=== PATIENT | female | born 1960 | race African-American/Black ===

== ENCOUNTER 2019-01-10 12:40 | Inpatient (IN) | payer MEDICAID, OTHER ==
[~2019-01-10] VITALS: Ht 167.6 cm; Wt 90.7 kg
[2019-01-10] MEDS ORDERED: ONDANSETRON HCL 4MG/2ML INJ IV STA (12:52)
[2019-01-10] MEDS ORDERED: MORPHINE SULFATE 4 MG/ML CPJ (NOT FOR IM USE) IV STA (12:52)
[2019-01-10] MEDS ORDERED: ASPIRIN 81MG TABLET PO ONE (13:00)
[2019-01-10] MEDS ORDERED: NITROGLYCERIN OINT 1GM/INCH UDPKT TD ONE (13:00)
[2019-01-10 13:23] LABS: BASOPHILS % 0.9 % (0.0-2.0); EOSINOPHILS % 1.7 % (0.0-5.0); HEMATOCRIT. 39.3 % (36.0-48.0); LYMPHOCYTES % 21.9 % (20.0-50.0); MEAN CORPUSCULAR HEMOGLOBIN 26.9 pg (28.0-32.0); MEAN CORPUSCULAR VOLUME 81.1 fL (81.0-99.0); MEAN PLATELET VOLUME 9.1 fl (7.4-10.4); MONOCYTES % 9.8 % (2.0-8.0); NEUTROPHILS % 65.7 % (40.0-76.0); PLATELET 289 x1000/uL (130-400); RED BLOOD CELL COUNT 4.85 mill/uL (4.2-5.4)
[2019-01-10 13:29] LABS: CHLORIDE 104 mEq/L (98-107)
[2019-01-10 13:33] LABS: ETHANOL BLOOD < 10 mg/dL; PARTIAL THROMBOPLASTIN TIME 29.7 sec (23.4-31.0)
[2019-01-10] MEDS ORDERED: IPRATROPIUM BROMIDE (0.02%) 0.5MG/2.5ML NEB HHN STA (13:41)
[2019-01-10] MEDS ORDERED: ALBUTEROL (0.083%) 2.5MG/3ML NEB HHN STA (13:41)
[2019-01-10] MEDS ORDERED: POTASSIUM CHLORIDE 20MEQ TABLET SR PO ONE (14:15)
[2019-01-10] MEDS ORDERED: LEVOFLOXACIN 500MG PREMIX 100 ML IV ONE (14:45)
[2019-01-10] MEDS ORDERED: CLONIDINE 0.1MG TABLET PO SCH (17:00)
[2019-01-10 18:20] VITALS: BP 149/87
[2019-01-10] MEDS ORDERED: MORPHINE SULFATE 2 MG/ML CPJ (NOT FOR IM USE) IV ONE (19:00)
[2019-01-10] MEDS ORDERED: IPRATROPIUM/ALBUTEROL 0.5-3(2.5)MG/3ML NEB HHN PRN (19:00)
[2019-01-10 20:00] VITALS: BP 142/81
[2019-01-10] MEDS: MORPHINE SULFATE 2 MG/ML CPJ (NOT FOR IM USE) IV PRN (21:47)
[2019-01-10] MEDS: NITROGLYCERIN OINT 1GM/INCH UDPKT TD SCH (21:48)
[2019-01-10] MEDS: METOPROLOL TARTRATE 25MG TABLET PO SCH (21:48)
[2019-01-10] MEDS: AMLODIPINE 5MG TABLET PO SCH (21:48)
[2019-01-10] MEDS ORDERED: LEVOFLOXACIN 500MG PREMIX 100 ML IV SCH (22:00)
[2019-01-11] VITALS: BP 128/61
[2019-01-11 04:00] VITALS: BP 137/62
[2019-01-11] MEDS: NITROGLYCERIN OINT 1GM/INCH UDPKT TD SCH (06:04)
[2019-01-11 06:05] LABS: BASOPHILS % 0.5 % (0.0-2.0); EOSINOPHILS % 1.7 % (0.0-5.0); HEMATOCRIT. 36.5 % (36.0-48.0); HEMOGLOBIN. 11.8 g/dL (12.0-16.0); LYMPHOCYTES % 22.1 % (20.0-50.0); MEAN CORPUSCULAR HEMOGLOBIN 26.3 pg (28.0-32.0); MEAN CORPUSCULAR VOLUME 80.9 fL (81.0-99.0); MEAN PLATELET VOLUME 8.9 fl (7.4-10.4); MONOCYTES % 12.6 % (2.0-8.0); NEUTROPHILS % 63.1 % (40.0-76.0); PLATELET 297 x1000/uL (130-400); RED CELL DISTRIBUTION WIDTH 15.2 % (11.6-14.6)
[2019-01-11] MEDS: MORPHINE SULFATE 2 MG/ML CPJ (NOT FOR IM USE) IV PRN ×3 (06:27→21:14)
[2019-01-11 06:44] LABS: CHLORIDE 103 mEq/L (98-107)
[2019-01-11 06:56] LABS: LDL CHOLESTEROL 171 mg/dL (5-100)
[2019-01-11 06:58] LABS: HDL CHOLESTEROL 39 mg/dL (40-59)
[2019-01-11 08:00] VITALS: BP 131/63
[2019-01-11] MEDS ORDERED: POTASSIUM CHLORIDE 20MEQ TABLET SR PO SCH (08:15)
[2019-01-11] MEDS ORDERED: ASPIRIN 81MG EC TABLET PO ONE (09:00)
[2019-01-11] MEDS: ASPIRIN 81MG EC TABLET PO SCH (09:39)
[2019-01-11] MEDS: AMLODIPINE 5MG TABLET PO SCH ×2 (09:39→21:13)
[2019-01-11] MEDS: METOPROLOL TARTRATE 25MG TABLET PO SCH ×2 (09:39→21:13)
[2019-01-11 12:00] VITALS: BP 137/82
[2019-01-11] MEDS ORDERED: POTASSIUM CHLORIDE 20MEQ TABLET SR PO ONE (12:45)
[2019-01-11] MEDS: NICOTINE 21MG PATCH TD SCH (13:10)
[2019-01-11 19:08] LABS: *AMPHETAMINES SCREEN URINE NEGATIVE (NEGATIVE); *BARBITURATES SCREEN URINE NEGATIVE (NEGATIVE)
[2019-01-11 19:09] LABS: *BENZODIAZEPINES SCREEN URINE NEGATIVE (NEGATIVE); *COCAINE SCREEN URINE PRESUMTIVE POSITIVE (NEGATIVE); CANNABINOID URINE SCREEN NEGATIVE (NEGATIVE); METHADONE URINE SCREEN NEGATIVE (NEGATIVE); OPIATES URINE SCREEN PRESUMTIVE POSITIVE (NEGATIVE); PHENCYCLIDINE URINE SCREEN NEGATIVE (NEGATIVE)
[2019-01-11 20:00] VITALS: BP 160/82
[2019-01-11] MEDS ORDERED: LEVOFLOXACIN 750MG PREMIX 150 ML IV SCH (21:00)
[2019-01-11] MEDS: ATORVASTATIN CALCIUM 40MG TABLET PO SCH (21:29)
[2019-01-12] VITALS: BP 141/67
[2019-01-12] MEDS: MORPHINE SULFATE 2 MG/ML CPJ (NOT FOR IM USE) IV PRN ×2 (01:37→06:00)
[2019-01-12] MEDS ORDERED: ACETAMINOPHEN 325MG TABLET PO PRN (02:00)
[2019-01-12 04:00] VITALS: BP 147/87
[2019-01-12 07:10] LABS: CHLORIDE 102 mEq/L (98-107)
[2019-01-12 07:22] LABS: BASOPHILS % 0.6 % (0.0-2.0); EOSINOPHILS % 2.1 % (0.0-5.0); HEMATOCRIT. 35.1 % (36.0-48.0); HEMOGLOBIN. 11.3 g/dL (12.0-16.0); LYMPHOCYTES % 23.6 % (20.0-50.0); MEAN CORPUSCULAR HEMOGLOBIN 26.3 pg (28.0-32.0); MEAN CORPUSCULAR VOLUME 81.7 fL (81.0-99.0); MONOCYTES % 11.3 % (2.0-8.0); NEUTROPHILS % 62.4 % (40.0-76.0); PLATELET 291 x1000/uL (130-400); RED BLOOD CELL COUNT 4.29 mill/uL (4.2-5.4)
[2019-01-12 08:00] VITALS: BP 143/80
[2019-01-12] MEDS: METOPROLOL TARTRATE 25MG TABLET PO SCH ×2 (08:26→21:06)
[2019-01-12] MEDS: AMLODIPINE 5MG TABLET PO SCH ×2 (08:26→21:06)
[2019-01-12] MEDS: ASPIRIN 81MG EC TABLET PO SCH (08:26)
[2019-01-12] MEDS: NICOTINE 21MG PATCH TD SCH (08:26)
[2019-01-12] MEDS ORDERED: DIPHENHYDRAMINE 50MG/ML VIAL IV PRN (11:30)
[2019-01-12] MEDS: METHYLPREDNISOLONE SOD SUCC 40 MG/ML VIAL IV SCH ×2 (11:59→22:18)
[2019-01-12 12:00] VITALS: BP 137/75
[2019-01-12] MEDS ORDERED: POTASSIUM CHLORIDE 20MEQ TABLET SR PO NR (13:30)
[2019-01-12 16:00] VITALS: BP 139/89
[2019-01-12] MEDS: CEFTRIAXONE 1 G PREMIX 50 ML IV SCH (17:57)
[2019-01-12] MEDS: AZITHROMYCIN 500 MG in DEXT 5% WATER 250 ML IV SCH (18:28)
[2019-01-12] MEDS: IPRATROPIUM/ALBUTEROL 0.5-3(2.5)MG/3ML NEB HHN SCH ×2 (19:44→23:39)
[2019-01-12] MEDS: ACETYLCYSTEINE 100MG/ML 10% VIAL 4ML INH SCH (19:44)
[2019-01-12 20:00] VITALS: BP 167/84
[2019-01-12] MEDS: ATORVASTATIN CALCIUM 40MG TABLET PO SCH (21:06)
[2019-01-12] MEDS: FAMOTIDINE 20MG/2ML VIAL IV SCH (22:19)
[2019-01-13 00:56] VITALS: BP 160/84
[2019-01-13] MEDS: CLONIDINE 0.1MG TABLET PO SCH ×3 (01:17→21:47)
[2019-01-13] MEDS: ACETYLCYSTEINE 100MG/ML 10% VIAL 4ML INH SCH ×2 (03:43→09:00)
[2019-01-13] MEDS: IPRATROPIUM/ALBUTEROL 0.5-3(2.5)MG/3ML NEB HHN SCH ×5 (03:43→21:12)
[2019-01-13 04:00] VITALS: BP 178/80
[2019-01-13] MEDS: METHYLPREDNISOLONE SOD SUCC 40 MG/ML VIAL IV SCH ×3 (04:20→21:45)
[2019-01-13 08:00] VITALS: BP 158/89
[2019-01-13] MEDS: NICOTINE 21MG PATCH TD SCH (09:02)
[2019-01-13] MEDS: AMLODIPINE 5MG TABLET PO SCH ×2 (09:03→23:15)
[2019-01-13] MEDS: METOPROLOL TARTRATE 25MG TABLET PO SCH ×2 (09:03→21:46)
[2019-01-13] MEDS: ASPIRIN 81MG EC TABLET PO SCH (09:03)
[2019-01-13] MEDS: FAMOTIDINE 20MG/2ML VIAL IV SCH ×2 (09:11→21:45)
[2019-01-13 12:00] VITALS: BP 165/81
[2019-01-13 16:00] VITALS: BP 175/88
[2019-01-13] MEDS: CEFTRIAXONE 1 G PREMIX 50 ML IV SCH (18:02)
[2019-01-13] MEDS: AZITHROMYCIN 500 MG in DEXT 5% WATER 250 ML IV SCH (18:03)
[2019-01-13] MEDS: ATORVASTATIN CALCIUM 40MG TABLET PO SCH (21:45)
[2019-01-13] MEDS: MORPHINE SULFATE 2 MG/ML CPJ (NOT FOR IM USE) IV PRN (22:19)
[2019-01-13] MEDS: HYDRALAZINE HCL 50MG TABLET PO SCH (23:15)
[2019-01-14] VITALS: BP 160/80
[2019-01-14] MEDS: ACETYLCYSTEINE 100MG/ML 10% VIAL 4ML INH SCH ×2 (01:10→08:51)
[2019-01-14] MEDS: IPRATROPIUM/ALBUTEROL 0.5-3(2.5)MG/3ML NEB HHN SCH ×5 (01:11→17:08)
[2019-01-14 04:00] VITALS: BP 188/93
[2019-01-14] MEDS: METHYLPREDNISOLONE SOD SUCC 40 MG/ML VIAL IV SCH ×2 (04:46→13:45)
[2019-01-14] MEDS ORDERED: CLONIDINE 0.1MG TABLET PO SCH (06:45)
[2019-01-14 07:25] LABS: BASOPHILS % 0.1 % (0.0-2.0); HEMATOCRIT. 38.3 % (36.0-48.0); LYMPHOCYTES % 9.6 % (20.0-50.0); MEAN CORPUSCULAR HEMOGLOBIN 25.6 pg (28.0-32.0); MEAN CORPUSCULAR VOLUME 81.7 fL (81.0-99.0); MEAN PLATELET VOLUME 9.4 fl (7.4-10.4); MONOCYTES % 3.4 % (2.0-8.0); NEUTROPHILS % 86.9 % (40.0-76.0); PLATELET 317 x1000/uL (130-400); RED BLOOD CELL COUNT 4.69 mill/uL (4.2-5.4); RED CELL DISTRIBUTION WIDTH 14.8 % (11.6-14.6)
[2019-01-14 07:49] LABS: CHLORIDE 100 mEq/L (98-107)
[2019-01-14 08:00] VITALS: BP 146/80
[2019-01-14] MEDS: ASPIRIN 81MG EC TABLET PO SCH (09:39)
[2019-01-14] MEDS: FAMOTIDINE 20MG/2ML VIAL IV SCH (09:39)
[2019-01-14] MEDS: NICOTINE 21MG PATCH TD SCH (09:39)
[2019-01-14] MEDS: HYDRALAZINE HCL 50MG TABLET PO SCH (09:40)
[2019-01-14] MEDS: METOPROLOL TARTRATE 25MG TABLET PO SCH (09:41)
[2019-01-14] MEDS: AMLODIPINE 5MG TABLET PO SCH (09:41)
[2019-01-14] MEDS: CLONIDINE 0.1MG TABLET PO SCH (09:42)
[2019-01-14 15:40] VITALS: BP 150/75
== END 2019-01-14 17:45 | disposition home or self-care (01) | DRG 720 ==
LOC: ER 13:10 → 7WST 14:33 → EDBEDREQTM 14:38 → EDBEDREQ 14:38 → ENRESERV 15:00 → CANRESERV 15:00 → ENRESERV 17:07
PROVIDERS: ADMIT Internal Medicine; ATTEND Internal Medicine
DX: A41.9 Sepsis, unspecified organism (principal); J96.00 Acute respiratory failure, unspecified whether with hypoxia or hypercapnia; J18.1 Lobar pneumonia, unspecified organism; E44.1 Mild protein-calorie malnutrition; E87.6 Hypokalemia; J44.1 Chronic obstructive pulmonary disease with (acute) exacerbation; M94.0 Chondrocostal junction syndrome [Tietze]; E78.5 Hyperlipidemia, unspecified; F14.90 Cocaine use, unspecified, uncomplicated; J44.0 Chronic obstructive pulmonary disease with (acute) lower respiratory infection; I25.10 Atherosclerotic heart disease of native coronary artery without angina pectoris; F10.10 Alcohol abuse, uncomplicated; F17.210 Nicotine dependence, cigarettes, uncomplicated; X58.XXXA Exposure to other specified factors, initial encounter; I10 Essential (primary) hypertension; G90.8 Other disorders of autonomic nervous system; T78.3XXA Angioneurotic edema, initial encounter; Z86.73 Personal history of transient ischemic attack (TIA), and cerebral infarction without residual deficits; Z82.49 Family history of ischemic heart disease and other diseases of the circulatory system; Z79.82 Long term (current) use of aspirin; Z71.6 Tobacco abuse counseling; Z68.32 Body mass index [BMI] 32.0-32.9, adult; Y93.89 Activity, other specified; Y92.89 Other specified places as the place of occurrence of the external cause; Y99.8 Other external cause status
CPT/HCPCS: 36415; 71045; 71250; 80048; 80061; 80305; 80320; 83605; 83735; 83880; 84484; 93005; 93306; 94640; 96374; 97161; 97166; 99291; J0456; J0696; J1956; J2270; J2405; J2920; J3490; J7060; J7608; J7611; J7620; G0480